=== PATIENT | female | born 1990 | race Caucasian/White ===

== ENCOUNTER 2019-04-12 21:59 | Emergency (ER) | payer OTHER ==
[~2019-04-12] VITALS: Ht 154.9 cm; Wt 68.0 kg
[2019-04-12 22:12] VITALS: Ht 154.9 cm; Wt 68.0 kg
[2019-04-13] MEDS ORDERED: SOD CHLORIDE 0.9% 1,000 ML IV STA (00:44)
[2019-04-13] MEDS ORDERED: morphine 4 MG/ML VIAL IV STA (00:44)
[2019-04-13] MEDS ORDERED: ONDANSETRON 4 MG INJ IV STA (00:44)
--- NOTE | 2019-04-13 03:29 | ERD ---
ER Documentation Chief Complaint Chief Complaint LLQ & LUQ PAIN TODAY HPI This is a 28-year-old female patient who presents to the emergency room with complaint of suprapubic and LLQ pain. Patient states that she was diagnosed with umbilical hernia 3 years ago and had similar pain. No fever, no diarrhea, no constipation, vomiting x1. No vaginal bleeding. LMP 15 days ago. Patient in mild distress. ROS All systems reviewed and are negative except as per history of present illness. Allergies Allergies: Coded Allergies: Penicillins (Verified Allergy, Mild, rash, 04/13/19) PMhx/Soc History of Surgery: Yes (, breast sx not sure what) Anesthesia Reaction: No Hx Neurological Disorder: No Hx Respiratory Disorders: No Hx Cardiac Disorders: Yes (HTN) Hx Miscellaneous Medical Probl: Yes (Hernia) Hx Alcohol Use: No Hx Substance Use: No Hx Tobacco Use: No Smoking Status: Never smoker Physical Exam Vitals Vital Signs Date Temp Pulse Resp B/P (MAP) Pulse Ox O2 O2 Flow FiO2 Time Delivery Rate 04/12/19 98.2 72 18 136/78 99 22:12 (97) Physical Exam Const: No acute distress Head: Atraumatic Eyes: Normal Conjunctiva ENT: Normal External Ears, Nose and Mouth. Neck: Full range of motion. No meningismus. Lymphadenopathy Resp: Clear to auscultation bilaterally Cardio: Regular rate and rhythm, no murmurs Abd: Soft, tender @ LUQ, LLQ, soft reducible umbilical hernia tenderness, no ecchymosis, non distended. Normal bowel sounds. Skin: No petechiae or rashes Back: No midline or flank tenderness Ext: No cyanosis, or edema Neur: Awake and alert Psych: Normal Mood and Affect Result Diagram: 04/13/19 0120 04/13/19 0120 Results 24 hrs Laboratory Tests Test 04/13/19 01:20 04/13/19 01:25 White Blood Count 15.0 10^3/ul Red Blood Count 4.93 10^6/ul Hemoglobin 14.0 g/dl Hematocrit 42.1 % Mean Corpuscular Volume 85.4 fl Mean Corpuscular Hemoglobin 28.4 pg Mean Corpuscular Hemoglobin Concent 33.3 g/dl Red Cell Distribution Width 13.3 % Platelet Count 322 10^3/UL Mean Platelet Volume 9.2 fl Immature Granulocytes % 0.800 % Neutrophils % 72.1 % Lymphocytes % 20.4 % Monocytes % 5.3 % Eosinophils % 1.1 % Basophils % 0.3 % Nucleated Red Blood Cells % 0.0 /100WBC Immature Granulocytes # 0.120 10^3/ul Neutrophils # 10.8 10^3/ul Lymphocytes # 3.1 10^3/ul Monocytes # 0.8 10^3/ul Eosinophils # 0.2 10^3/ul Basophils # 0.0 10^3/ul Nucleated Red Blood Cells # 0.0 10^3/ul Urine Color YELLOW Urine Clarity CLOUDY Urine pH 5.0 Urine Specific [place] 1.025 Urine Ketones 1+ mg/dL Urine Nitrite NEGATIVE mg/dL Urine Bilirubin NEGATIVE mg/dL Urine Urobilinogen NEGATIVE mg/dL Urine Leukocyte Esterase 2+ Neema/ul Urine Microscopic RBC 6 /HPF Urine Microscopic WBC 26 /HPF Urine Squamous Epithelial Cells FEW /HPF Urine Bacteria FEW /HPF Urine Mucus FEW /HPF Urine Hemoglobin 1+ mg/dL Urine Glucose NEGATIVE mg/dL Urine Total Protein NEGATIVE mg/dl Sodium Level 140 mmol/L Potassium Level 3.5 mmol/L Chloride Level 107 mmol/L Carbon Dioxide Level 23 mmol/L Anion Gap 10 Blood Urea Nitrogen 10 mg/dl Creatinine 0.54 mg/dl Est Glomerular Filtrat Rate mL/min > 60 mL/min Glucose Level 104 mg/dl Calcium Level 8.8 mg/dl Total Bilirubin 0.4 mg/dl Direct Bilirubin 0.00 mg/dl Indirect Bilirubin 0.4 mg/dl Aspartate Amino Transf (AST/SGOT) 23 IU/L Alanine Aminotransferase (ALT/SGPT) 28 IU/L Alkaline Phosphatase 114 IU/L Total Protein 7.5 g/dl Albumin 4.1 g/dl Globulin 3.40 g/dl Albumin/Globulin Ratio 1.20 Lipase 47 U/L Beta HCG, Quantitative 72908.0 mIU/ml POC Beta HCG, Qualitative POSITIVE Current Medications Medications Dose Sig/Maria Luz Start Time Status Last (Trade) Ordered Route PRN Stop Time Admin Dose Reason Admin Sodium 1,000 ml @ Q1H STAT 04/13/19 DC 04/13/19 Chloride 1,000 mls/hr IV 00:44 01:14 04/13/19 01:43 Morphine 4 mg ONCE STAT 04/13/19 DC 04/13/19 Sulfate IV 00:44 01:14 (morphine) 04/13/19 00:49 Ondansetron 4 mg ONCE STAT 04/13/19 DC 04/13/19 HCl (Zofran IV 00:44 01:14 Inj) 04/13/19 00:49 Fosfomycin 3 gm ONCE ONCE 04/13/19 DC 04/13/19 Tromethamine PO 03:30 04:02 (Monurol) 04/13/19 03:36 Procedures/MDM This is a 28-year-old female patient with complaining of left lower quadrant and umbilical abdominal pain. ED COURSE: The patient was stable throughout ED course. DIAGNOSTIC IMAGING: Read by radiologist. IMPRESSION: 1. Gestational sac seen with mean sac diameter corresponding to an estimated gestational age of 7 weeks 1 day, much greater than the estimated gestational age by dates of 2 weeks 3 days. 2. No pole or yolk sac identified, which is abnormal for a gestational sac of this size, raising concern for demise/spontaneous . Clinical correlation with serial beta HCG recommended with consideration for follow-up imaging. 3. Fundal subchorionic hemorrhage measures up to 4.1 cm. 4. The ovaries are not visualized on today's exam, without identifiable pathologic adnexal mass. PROCEDURES: None. MEDICATIONS GIVEN: Morphine, Zofran, fosfomycin Patient tolerated medication well with no adverse reactions. Patient reported improvement in pain. MDM: Case discussed with Dr. Boston. manager foreign used to explain diagnostic results, plan of care, need for close follow-up. All questions answered. Patient remained stable throughout the ER course. Differential includes early normal , ectopic , failed . She will discharged home with recommendations for 2-day recheck of hormones to further evaluate condition. She is to return sooner for fevers, hemorrhaging, new worsening symptoms. Current signs or symptoms do not suggest appendicitis, acute surgical abdomen, additional concerning signs or symptoms or conditions. The patient was stable with no new complaints during the ER course. Clinically, there is no current evidence to suggest meningitis, sepsis, acute abdomen, pneumonia, stroke, acute coronary syndrome, pulmonary embolism, aortic dissection or any other emergent condition appearing to require further evaluation or hospitalization. Patient counseled regarding diagnostic impression and care plan. Pt agrees with treatment plan and understands strict return precautions. Pt is instructed to follow up with primary care provider within 24-48 hours. Precautionary instructions provided including instructions to return to the ER if not improving or for any worsening or changing symptoms or concerns. DISPOSITION: The patient has been discharge home to follow-up with community physician. Departure Diagnosis: Primary Impression: Threatened Condition: Stable Comments see depart instructions GEOFF CELIS NP April 13, 2019 03:29
[2019-04-13] MEDS ORDERED: FOSFOMYCIN 3 GM PACKET PO ONE (03:30)
[2019-04-13 04:50] VITALS: BP 127/78; PULSE 63; RESP 17
[2019-04-13] MEDS ORDERED: ACET500C5 PO (05:15)
== END 2019-04-13 04:50 | disposition home or self-care (01) ==
LOC: FTE 21:59
DX: O20.0 Threatened abortion (principal); O10.011 Pre-existing essential hypertension complicating pregnancy, first trimester; Z3A.01 Less than 8 weeks gestation of pregnancy
CPT/HCPCS: 36415; 76801; 76817; 80053; 81001; 81025; 83690; 84702; 85025; 86900; 86901; 96374; 96375; J2270; J2405; J7030; Z7502; Z7610

== ENCOUNTER 2019-04-14 21:08 | Emergency (ER) | payer OTHER ==
[~2019-04-14] VITALS: Ht 157.5 cm; Wt 75.0 kg
[~2019-04-14 21:08] MED LIST: ACET500C5 PO
[2019-04-14 21:47] VITALS: Ht 157.5 cm; Wt 75.0 kg
--- NOTE | 2019-04-15 01:35 | ERD ---
ER Documentation Chief Complaint Chief Complaint L pelvic pain x 3 days; asked to follow-up x threatened HPI This is a 28-year-old female who presents emergency department with complaints of left-sided pelvic pain. Was here 3 days ago for the same reason, had an ultrasound, diagnosed with threatened . Was advised to come back here emergency department for reevaluation/imaging/blood works. LMP: Unable to obtain. G5, . Denies headache, head injury, loss of consciousness, dizziness, neck pain, neck stiffness, throat pain, difficulty swallowing, difficulty breathing lying flat, shoulder pain, chest pain, back pain, abdominal pain, nausea, vomiting, constipation, diarrhea, urinary symptoms, loss of bowel and bladder control, trauma, injury, falls, difficulty walking due to pain, numbness or tingling sensation, calf pain, recent travel, recent major surgery in the last 3 weeks, calf pain, recent long travel, recent exposure to any illness, recent antibiotic use in the last 3 months, fever, chills, seizures. Past medical history: Surgical history: Social: Denies smoking, use of alcoholic beverages, use of illegal drugs. ROS All systems reviewed and are negative except as per history of present illness. Medications Home Meds Active Scripts Hydrocodone/Acetaminophen ([place] 5-325 Tablet) 1 Each Tablet, 1 TAB PO Q6H PRN for PAIN, #7 TAB Prov:ALEJANDRO KAHN PA-C 04/17/19 Vit No.124/Iron/FA ( Vitamin Tablet) 1 Each Tablet, 1 EACH PO DAILY, #30 TAB Prov:JOHNILABAN,RJAR F 04/15/19 Nitrofurantoin Monohyd Macrocr* (Macrobid*) 100 Mg Capsr, 100 MG PO BID for 7 Days, CAP Prov:PASILABAN,KLAR F 04/15/19 Acetaminophen* (Tylophen*) 500 Mg Capsule, 1 CAP PO Q6H PRN for PAIN AND OR ELEVATED TEMP, #20 CAP Prov:PASILABAN,KLAR F 04/15/19 Acetaminophen* (Tylophen*) 500 Mg Capsule, 1 CAP PO Q6H PRN for PAIN AND OR ELEVATED TEMP, #20 CAP Prov:BIANCA ANNE PA-C 04/13/19 Allergies Allergies: Coded Allergies: Penicillins (Verified Allergy, Mild, rash, 04/13/19) PMhx/Soc History of Surgery: Yes (, breast sx not sure what) Anesthesia Reaction: No Hx Neurological Disorder: No Hx Respiratory Disorders: No Hx Cardiac Disorders: Yes (HTN) Hx Miscellaneous Medical Probl: Yes (Hernia) Hx Alcohol Use: No Hx Substance Use: No Hx Tobacco Use: No Physical Exam Vitals Physical Exam Const: No acute distress Head: Atraumatic Eyes: Normal Conjunctiva ENT: Normal External Ears, Nose and Mouth. Neck: Full range of motion. No meningismus. Resp: Clear to auscultation bilaterally Cardio: Regular rate and rhythm, no murmurs Abd: Soft, non tender, non distended. Normal bowel sounds. Negative Garvey sign. Negative [place] sign (heel jar test). Negative psoas sign. No CVA tenderness. Skin: No petechiae or rashes. Color appears normal for ethnicity. Back: No midline or flank tenderness Ext: No cyanosis, or edema Neur: Awake and alert. No neurological deficit. Psych: Normal Mood and Affect Results 24 hrs Laboratory Tests Test 04/15/19 01:56 White Blood Count 12.5 10^3/ul Red Blood Count 5.08 10^6/ul Hemoglobin 14.3 g/dl Hematocrit 44.3 % Mean Corpuscular Volume 87.2 fl Mean Corpuscular Hemoglobin 28.1 pg Mean Corpuscular Hemoglobin Concent 32.3 g/dl Red Cell Distribution Width 13.4 % Platelet Count 319 10^3/UL Mean Platelet Volume 8.9 fl Immature Granulocytes % 0.500 % Neutrophils % 69.4 % Lymphocytes % 22.4 % Monocytes % 5.7 % Eosinophils % 1.5 % Basophils % 0.5 % Nucleated Red Blood Cells % 0.0 /100WBC Immature Granulocytes # 0.060 10^3/ul Neutrophils # 8.7 10^3/ul Lymphocytes # 2.8 10^3/ul Monocytes # 0.7 10^3/ul Eosinophils # 0.2 10^3/ul Basophils # 0.1 10^3/ul Nucleated Red Blood Cells # 0.0 10^3/ul Urine Color YELLOW Urine Clarity SLIGHTLY CLOUDY Urine pH 7.0 Urine Specific [place] 1.013 Urine Ketones NEGATIVE mg/dL Urine Nitrite NEGATIVE mg/dL Urine Bilirubin NEGATIVE mg/dL Urine Urobilinogen NEGATIVE mg/dL Urine Leukocyte Esterase 2+ Neema/ul Urine Microscopic RBC 3 /HPF Urine Microscopic WBC 3 /HPF Urine Squamous Epithelial Cells FEW /HPF Urine Bacteria FEW /HPF Urine Hemoglobin NEGATIVE mg/dL Urine Glucose NEGATIVE mg/dL Urine Total Protein NEGATIVE mg/dl Sodium Level 142 mmol/L Potassium Level 3.9 mmol/L Chloride Level 107 mmol/L Carbon Dioxide Level 25 mmol/L Anion Gap 10 Blood Urea Nitrogen 7 mg/dl Creatinine 0.52 mg/dl Est Glomerular Filtrat Rate mL/min > 60 mL/min Glucose Level 96 mg/dl Calcium Level 9.1 mg/dl Total Bilirubin 0.5 mg/dl Direct Bilirubin 0.00 mg/dl Indirect Bilirubin 0.5 mg/dl Aspartate Amino Transf (AST/SGOT) 30 IU/L Alanine Aminotransferase (ALT/SGPT) 45 IU/L Alkaline Phosphatase 108 IU/L Total Protein 7.4 g/dl Albumin 4.1 g/dl Globulin 3.30 g/dl Albumin/Globulin Ratio 1.24 Lipase 57 U/L Beta HCG, Quantitative 03618.0 mIU/ml Current Medications Medications Dose Sig/Maria Luz Start Time Status Last (Trade) Ordered Route PRN Stop Time Admin Dose Reason Admin 500 mg ONCE STAT 04/15/19 DC 04/15/19 Acetaminophen PO 01:45 02:25 (Tylenol 04/15/19 01:46 Tab) Procedures/MDM Diagnostic tests: Urinalysis: 2+ leukocytes. Culture urine: Sent. Beta-hCG quantitative: 65393.0. Blood works: Reviewed. OB ultrasound: 1. of unknown viability. There is an intrauterine gestational sac with three yolk sacs that may be due to an early monochorionic triplet . At this early gestational age, viability cannot be established. Recommend correlation with serial beta HCG and follow-up ultrasound in 7-10 days or earlier if clinically warranted. 2. Large subchorionic hemorrhage measures 3.2 x 4.9 cm. Treatment: Tylenol. Spoke with Dr. Portia Armendariz, TRANSLATOR/INTERPRETER [phone]. She stated that patient is stable to go home and have her come back in 2 days for a repeat hCG and ultrasound. Re-evaluation: Denies abdominal pain, back pain, pelvic pain. Denies vaginal bleeding. No signs of hemorrhaging. Stated that she feels much better at this time and that she is ready to go home. Differential diagnosis I have low suspicion for hemorrhaging, sepsis. Final diagnosis: Possible missed . Prescription: Macrobid. Tylenol. vitamins. Follow-up with PCP in the next 24-48 hours. Come back in 2 days for a recheck of hCG levels and or possible ultrasound. Follow-up with OB in the next 24 to 48 hours. Come back here in the emergency department for any new symptoms or any worsening symptoms. All questions and concerns were answered. Patient and family members verbalized understanding and agreed with plan of care. Hemodynamically stable on discharge. Departure Diagnosis: Primary Impression: Missed Condition: Stable Additional Instructions: Follow-up with PCP in the next 24-48 hours. Come back in 2 days for a recheck of hCG levels and or possible ultrasound. Follow-up with OB in the next 24 to 48 hours. Come back here in the emergency department for any new symptoms or an y worsening symptoms. SUSIE ROB April 15, 2019 01:35
[2019-04-15] MEDS ORDERED: ACETAMINOPHEN 500 MG TAB PO STA (01:45)
[2019-04-15] MEDS ORDERED: ACET500C5 PO (04:42)
[2019-04-15] MEDS ORDERED: NITR-58 PO (04:43)
[2019-04-15] MEDS ORDERED: PREN-93 PO (04:43)
[2019-04-15 05:09] VITALS: BP 127/66; PULSE 62; RESP 18
== END 2019-04-15 05:11 | disposition home or self-care (01) ==
LOC: FTE 21:08
DX: O02.1 Missed abortion (principal); O10.011 Pre-existing essential hypertension complicating pregnancy, first trimester; R10.2 Pelvic and perineal pain
CPT/HCPCS: 76801; 76817; 80053; 81001; 83690; 84702; 85025; 87086; Z7502; Z7610

== ENCOUNTER 2019-04-17 06:41 | Emergency (ER) | payer OTHER ==
[~2019-04-17] VITALS: Ht 160 cm; Wt 75.6 kg
[~2019-04-17 06:41] MED LIST changes: +NITR-58 PO; +PREN-93 PO
[2019-04-17 06:44] VITALS: BP 126/89; PULSE 68; RESP 18; Ht 160 cm; Wt 75.6 kg
[2019-04-17] MEDS ORDERED: HYDR-4011 PO (09:03)
--- NOTE | 2019-04-17 09:34 | ERD ---
ER Documentation Chief Complaint Chief Complaint 2 days lab recheck 12wks ? HPI 28-year-old female presenting for lab recheck. Patient is about 12 weeks and was told to return for beta-hCG levels. G7, . LNMP March 28. Patient currently does not have an SIGNAL OPERATOR TECHNICAL doctor. She is having some mild suprapubic tenderness with some mild tenderness to left lower quadrant. Denies medical problems. Allergic to penicillin. Surgical history . Social history denies ROS All systems reviewed and are negative except as per history of present illness. Medications Home Meds Active Scripts Hydrocodone/Acetaminophen ([place] 5-325 Tablet) 1 Each Tablet, 1 TAB PO Q6H PRN for PAIN, #7 TAB Prov:ALEJANDRO KAHN PA-C 04/17/19 Vit No.124/Iron/FA ( Vitamin Tablet) 1 Each Tablet, 1 EACH PO DAILY, #30 TAB Prov:PASILABAN,KLAR F 04/15/19 Nitrofurantoin Monohyd Macrocr* (Macrobid*) 100 Mg Capsr, 100 MG PO BID for 7 Days, CAP Prov:PASILABAN,KLAR F 04/15/19 Acetaminophen* (Tylophen*) 500 Mg Capsule, 1 CAP PO Q6H PRN for PAIN AND OR ELEVATED TEMP, #20 CAP Prov:PASILABAN,KLAR F 04/15/19 Acetaminophen* (Tylophen*) 500 Mg Capsule, 1 CAP PO Q6H PRN for PAIN AND OR ELEVATED TEMP, #20 CAP Prov:BIANCA ANNE PA-C 04/13/19 Allergies Allergies: Coded Allergies: Penicillins (Verified Allergy, Mild, rash, 04/13/19) PMhx/Soc History of Surgery: Yes (, breast sx not sure what) Anesthesia Reaction: No Hx Neurological Disorder: No Hx Respiratory Disorders: No Hx Cardiac Disorders: Yes (HTN) Hx Miscellaneous Medical Probl: Yes (Hernia) Hx Alcohol Use: No Hx Substance Use: No Hx Tobacco Use: No FmHx Family History: No diabetes, No coronary disease, No other Physical Exam Vitals Vital Signs Date Temp Pulse Resp B/P (MAP) Pulse Ox O2 O2 Flow FiO2 Time Delivery Rate 04/17/19 96.1 68 18 126/89 100 06:44 (101) Physical Exam GENERAL: The patient is well-appearing, well-nourished, in no acute distress CHEST: Clear to auscultation bilaterally. There are no rales, wheezes or rhonchi. HEART: Regular rate and rhythm. No murmurs, clicks, rubs or gallops. No S3 or S4. ABDOMEN: Mild test palpation left lower quadrant with no rebound tenderness. No rigidity. No organomegaly. BACK: No midline or flank tenderness. Result Diagram: 04/17/19717 Results 24 hrs Laboratory Tests Test 04/17/19 07:18 White Blood Count 11.0 10^3/ul Red Blood Count 4.89 10^6/ul Hemoglobin 13.9 g/dl Hematocrit 42.8 % Mean Corpuscular Volume 87.5 fl Mean Corpuscular Hemoglobin 28.4 pg Mean Corpuscular Hemoglobin Concent 32.5 g/dl Red Cell Distribution Width 13.0 % Platelet Count 278 10^3/UL Mean Platelet Volume 8.9 fl Immature Granulocytes % 0.500 % Neutrophils % 68.5 % Lymphocytes % 22.4 % Monocytes % 5.6 % Eosinophils % 2.6 % Basophils % 0.4 % Nucleated Red Blood Cells % 0.0 /100WBC Immature Granulocytes # 0.060 10^3/ul Neutrophils # 7.5 10^3/ul Lymphocytes # 2.5 10^3/ul Monocytes # 0.6 10^3/ul Eosinophils # 0.3 10^3/ul Basophils # 0.0 10^3/ul Nucleated Red Blood Cells # 0.0 10^3/ul Urine Color YELLOW Urine Clarity CLOUDY Urine pH 5.0 Urine Specific [place] 1.023 Urine Ketones NEGATIVE mg/dL Urine Nitrite NEGATIVE mg/dL Urine Bilirubin NEGATIVE mg/dL Urine Urobilinogen 1+ mg/dL Urine Leukocyte Esterase 3+ Neema/ul Urine Microscopic RBC 10 /HPF Urine Microscopic WBC 50 /HPF Urine Squamous Epithelial Cells MANY /HPF Urine Bacteria FEW /HPF Urine Hemoglobin 1+ mg/dL Urine Glucose NEGATIVE mg/dL Urine Total Protein NEGATIVE mg/dl Beta HCG, Quantitative 05166.0 mIU/ml Procedures/MDM DIAGNOSTIC IMAGING REPORT Patient: MARA ZHU : 1990 Age: 28 Sex: F MR #: [id number] DOS: 04/17/19 0705 Ordering MD: DIANNE KAHN PA-C Location: [facility] Room/Bed: PROCEDURE: US OB including transvaginal scanning. CLINICAL INDICATION: patient with pelvic pain TECHNIQUE: Transabdominal and transvaginal views of the pelvis are available for review. Transvaginal scanning was needed for better evaluation of the endometrial stripe and endometrial contents as well as improved evaluation of the adnexa. COMPARISON: 04/15/2019 FINDINGS: The cervix is closed. The prior study suggested at least 3 yolk sacs within a single intrauterine gestational sac. On the current study, only a single yolk sac is seen. There is a pole with a crown-rump length of 2.7 millimeters w hich would correspond to a 5-week and 6-day gestation. No heart rate was seen. A large subchorionic hemorrhage is again seen measuring approximately 3.2 x 3.9 cm. Unremarkable ovaries with small follicles. No free fluid was seen. Gestational sac size was 2.8 cm. IMPRESSION: Intrauterine gestational sac with size corresponding to an expected gestational age of 7 weeks and 6 days. Only a single yolk sac and pole was seen with crown-rump length corresponding to an approximate 5-week and 6-day gestation. No heart rate was detected and a large subchorionic hemorrhage was again seen. This is still consistent with a unknown viability. Follow-up scan in 7-10 days or earlier if clinically warranted and correlation with serial Beta HCG levels is again suggested. MDM: 28-year-old female presenting with left lower pelvic pain. Patient is currently undergoing miscarriage. Patient is on an medication for urinary tract infection. Urine will be sent for culture given she has infection however is taking antibiotics. I have low suspicion for hemodynamic instability. I have low suspicion for ectopic . Patient is discharged with strict ER precautions. All questions answered at discharge Departure Diagnosis: Primary Impression: Incomplete Condition: Stable Patient Instructions: Miscarriage (Incomplete) Referrals: SIGNAL OPERATOR TECHNICAL [place] [address] [facility] [address] [place] [address] OFFICE FAX GARCIA NASH [address] [place] [address] [place] [place] [address] [place] [address] [address] [facility], [facility] [address], [address], [place] [address] [facility] [address] [facility] [place] [address] [facility] [address] [place] [address] [facility] [address] - JIMENEZ KERN [address], [place] [address] DR ENRIQUEZ, [place] [address] [facility]. [address], [place] [address] [address] [facility] [address] [place] [address] Additional Instructions: FOLLOW UP WITH YOUR PRIMARY CARE PHYSICIAN TOMORROW.Return to this facility if you are not improving as expected. ALEJANDRO KAHN PA-C April 17, 2019 09:34
== END 2019-04-17 09:09 | disposition home or self-care (01) ==
LOC: FTE 06:41
DX: O03.4 Incomplete spontaneous abortion without complication (principal); R10.32 Left lower quadrant pain; R10.2 Pelvic and perineal pain; O10.011 Pre-existing essential hypertension complicating pregnancy, first trimester
CPT/HCPCS: 36415; 76801; 76817; 81001; 84702; 85025; 86900; 86901; 87086; Z7502